=== PATIENT | male | born 1995 | race Hispanic/Latino ===

== ENCOUNTER 2018-07-26 01:03 | Emergency (ER) | payer OTHER ==
[~2018-07-26] VITALS: Ht 185.4 cm; Wt 117.0 kg
[2018-07-26] MEDS ORDERED: KETOROLAC TROMETHAMINE 60 MG/2 ML VIAL IM ONE (01:45)
[2018-07-26] MEDS ORDERED: HYDROMORPHONE 2MG/ML 2 MG/ML ML IM ONE (01:45)
[2018-07-26] MEDS ORDERED: CYCLOBENZAPRINE HCL 10 MG TAB PO ONE (01:45)
--- NOTE | 2018-07-26 02:44 | Diagnostic Imaging Report ---
Examination: CT LUMBAR SPINE WITHOUT CONTRAST History: Low back pain after heavy lifting Comparison studies: None Technique: Axial images were obtained through the lumbar spine from T12. Coronal and sagittal reconstructions obtained from the axial data. Dose modulation, iterative reconstruction, and/or weight based adjustment of the mA/kV was utilized to reduce the radiation dose to as low as reasonably achievable. Intravenous contrast: None Findings: The usual 5 non-rib bearing lumbar vertebral bodies are present. Alignment: Normal lordosis. No scoliosis. Soft tissues: No abnormalities. Paraspinal muscles: No abnormalities. Sacroiliac joints: No degenerative changes. Vertebrae: No fractures, infection or neoplasm. An L4 hemangioma. Degenerative changes: L1-L2 through L3-L4: No abnormalities. L4-L5: Mild diffuse disc bulge. No foraminal or canal stenosis. L5-S1: No abnormalities. IMPRESSION: No acute abnormalities. Signed by: Dr. Avelina Faria M.D. on 07/26/2018 2:41 AM
[2018-07-26] MEDS ORDERED: METHOCARBAMOL 750 MG TAB PO ONE (03:00)
== END 2018-07-26 03:19 | disposition home or self-care (01) ==
LOC: ER 01:03
DX: M54.5 Low back pain (principal); S39.012A Strain of muscle, fascia and tendon of lower back, initial encounter; X50.0XXA Overexertion from strenuous movement or load, initial encounter; Y99.0 Civilian activity done for income or pay
CPT/HCPCS: 72131; 96372; 99283; J1170; J1885